=== PATIENT | female | born 1995 | race Caucasian/White ===

== ENCOUNTER → 2022-12-31 15:46 | Outpatient (CLI) | payer OTHER, MEDICAID, SELFPAY ==
[2022-12-31 17:54] LABS: Add Manual Diff / Slide Review NO; Basophils Absolute Auto 0 /uL (0-100); Basophils Percent Auto 0.5 % (0-2); Eosinophils Absolute Auto 300 /uL (0-450); Eosinophils Percent Auto 4.4 % (2-4); Hematocrit 39.1 % (36-46); Hemoglobin 13.1 g/dL (12.0-16.0); Lymphocytes Absolute Auto 2300 /uL (1100-4500); Lymphocytes Percent Auto 34.1 % (25-40); Mean Corpuscular HGB Conc 33.6 % (30-36); Mean Corpuscular Hemoglobin 28.5 PG (26-34); Mean Corpuscular Volume 84.8 fL (80-100); Monocytes Absolute Auto 500 /uL (0-900); Monocytes Percent Auto 7.1 % (3-14); Neutrophils Absolute Auto 3700 /uL (1500-7000); Neutrophils Percent Auto 53.9 % (50-75); Platelet Count 381 X10^3/uL (150-400); Red Blood Cell Count 4.61 X10^6/uL (4.0-5.2); Red Cell Distribution Width 13.3 % (11.6-14.8); White Blood Cell Count 6.8 X10^3/uL (4.5-11.0)
[2022-12-31 18:25] LABS: Alanine Aminotransferase 22 IU/L (<35); Albumin 4.7 g/dL (3.5-5.0); Albumin Globulin Ratio 1.6 (1.0-2.8); Alkaline Phosphatase 58 U/L (38-126); Aspartate Aminotransferase 33 IU/L (14-36); BUN Creatinine Ratio 23.1 (6-22); Bilirubin Total 0.3 mg/dL (0.2-1.3); Blood Urea Nitrogen 15 mg/dL (7-17); Calcium 10.1 mg/dL (8.4-10.2); Carbon Dioxide 29 mmol/L (22-32); Chloride 103 mmol/L (98-107); Estimated Glomerular Filt Rate > 60 mL/min (>60); Glucose 81 mg/dL (70-100); HEMOLYSIS < 15 (0-50); Potassium 4.3 mmol/L (3.4-5.1); Sodium 139 mmol/L (137-145); Total Protein 7.7 g/dL (6.3-8.2)
[2023-01-04 09:21] LABS: Lamotrigine Lamictal 5.7 ug/mL (2.0-20.0)
== END ==
PROVIDERS: PCP Physician Assistant; Referring Provider Psychiatry & Neurology Psychiatry; Visit Provider Psychiatry & Neurology Psychiatry
DX: F32.9 Major depressive disorder, single episode, unspecified (principal); Z79.899 Other long term (current) drug therapy
CPT/HCPCS: 36415; 80053; 80175; 85025

== ENCOUNTER 2024-08-24 17:20 | Emergency (ER) | payer OTHER, SELFPAY ==
[2024-08-24 17:41] VITALS: BP 129/92; PULSE 70; RESP 18; TEMP 36.7; O2SAT 97; BMI 28.3
[2024-08-24 18:20] LABS: Ur Creatinine Normal (Normal); Ur Specific Gravity Normal (Normal); Urine pH Normal (Normal)
[2024-08-24 18:21] LABS: Add Manual Diff / Slide Review NO; Basophils Absolute Auto 100 /uL (0-100); Basophils Percent Auto 1.1 % (0-2); Eosinophils Absolute Auto 200 /uL (0-450); Eosinophils Percent Auto 2.8 % (2-4); Hematocrit 38.9 % (36-46); Hemoglobin 12.9 g/dL (12.0-16.0); Lymphocytes Absolute Auto 2400 /uL (1100-4500); Lymphocytes Percent Auto 34.6 % (25-40); Mean Corpuscular Hemoglobin 28.6 PG (26-34); Mean Corpuscular Volume 86.5 fL (80-100); Monocytes Absolute Auto 500 /uL (0-900); Monocytes Percent Auto 7.9 % (3-14); Neutrophils Absolute Auto 3700 /uL (1500-7000); Neutrophils Percent Auto 53.6 % (50-75); Platelet Count 364 X10^3/uL (150-400); Red Cell Distribution Width 13.4 % (11.6-14.8); UR Morphine/Opiate cutoff 300 Negative (Negative); Urine Amphetamines Positive (Negative); Urine Barbiturates Negative (Negative); Urine Benzodiazepines Negative (Negative); Urine Cocaine Negative (Negative); Urine MDMA Negative (Negative); Urine Methadone Negative (Negative); Urine Methamphetamines Negative (Negative); Urine Oxycodone Negative (Negative); Urine Phencyclidine Negative (Negative); Urine Tetrahydrocannabinol Positive (Negative); Urine Tricyclic Antidepressant Negative (Negative); White Blood Cell Count 6.9 X10^3/uL (4.5-11.0)
[2024-08-24 18:28] LABS: Acetaminophen < 10 ug/mL (10-30); Alanine Aminotransferase 22 IU/L (<35); Albumin 4.8 g/dL (3.5-5.0); Albumin Globulin Ratio 1.5 (1.0-2.8); Alkaline Phosphatase 66 U/L (38-126); Aspartate Aminotransferase 34 IU/L (14-36); BUN Creatinine Ratio 22.5 (6-22); Bilirubin Total 0.4 mg/dL (0.2-1.3); Blood Urea Nitrogen 16 mg/dL (7-17); Calcium 9.2 mg/dL (8.4-10.2); Carbon Dioxide 28 mmol/L (22-32); Chloride 100 mmol/L (98-107); Estimated Glomerular Filt Rate > 60 mL/min (>60); Ethanol (ETOH) < 10 mg/dL (<10); Globulin 3.1 g/dL (1.7-4.1); Glucose 94 mg/dL (70-99); HEMOLYSIS < 15 (0-50); Potassium 4.4 mmol/L (3.4-5.1); Salicylate < 1.0 mg/dL (<20); Sodium 137 mmol/L (137-145); Total Protein 7.9 g/dL (6.3-8.2)
--- NOTE | 2024-08-24 18:55 | PC.NURSE ---
[facility] [employer] note: pt. verbalized they are on antibiotics and have their medication in their personal belongings (locked up in ED cabinet). pt. is sitting high fowlers reading a book. remain 1:1
[2024-08-24 19:02] LABS: TSH w/ Reflex to FT4 4.12 uIU/mL (0.47-4.68)
[2024-08-24 19:59] LABS: Appearance Urine UA CLEAR; Bilirubin Urine UA NEGATIVE (NEGATIVE); Color Urine UA YELLOW; Glucose Urine UA NEGATIVE (Negative); Ketones Urine UA NEGATIVE (NEGATIVE); Leukocyte Esterase Urine UA NEGATIVE (NEGATIVE); Nitrite Urine UA NEGATIVE (Negative); Occult Blood Urine UA NEGATIVE (Negative); Protein Urine UA NEGATIVE (Negative); Urobilinogen Urine UA 0.2 E.U./dL (0.2)
[2024-08-24 20:00] LABS: Pregnancy Test Urine Negative (Negative)
[2024-08-24 20:45] VITALS: BP 120/82; PULSE 80; RESP 17; TEMP 36.7; O2SAT 100
--- NOTE | 2024-08-24 20:53 | PC.NURSE ---
Pt requests to take her home meds. 500mg Cephalexin, 20mg Buspar, 40mg Propranolol given with provider okay.
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
[2024-08-24] MEDS: ACETAMINOPHEN 325 MG TABLET 650 MG PO (22:30)
[2024-08-25 07:00] VITALS: BP 111/66; PULSE 60; RESP 16; TEMP 36.7; O2SAT 100
[2024-08-25] MEDS: VENLAFAXINE ER 75 MG CAP 150 MG PO (11:15)
[2024-08-25] MEDS: PROPRANOLOL 10 MG TABLET 40 MG PO (11:15)
[2024-08-25] MEDS: busPIRone 5 MG TABLET 20 MG PO (11:16)
[2024-08-25] MEDS: cephALEXin 250 MG CAPSULE 500 MG PO (11:16)
[2024-08-25] MEDS: DEXTROAMPHETAMINE AMPHETAMINE 30 MG 30 EACH PO (11:17)
[2024-08-25] MEDS: lamoTRIgine 100 MG TABLET 200 MG PO (11:17)
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
== END 2024-08-25 11:46 | disposition home or self-care (01) ==
PROVIDERS: Emergency Medicine; Emergency Provider Emergency Medicine; PCP Physician Assistant
DX: R45.851 Suicidal ideations (principal); F33.41 Major depressive disorder, recurrent, in partial remission; M25.552 Pain in left hip; M54.9 Dorsalgia, unspecified
CPT/HCPCS: 36415; 80053; 80305; 80320; 80329; 81003; 81025; 84443; 85025; 99284; G0480